=== PATIENT | female | born 1990 | race Caucasian/White ===

== ENCOUNTER 2024-11-28 21:33 | Emergency (ER) | payer OTHER, SELFPAY ==
[2024-11-28 21:41] VITALS: BP 128/76
--- NOTE | 2024-11-28 21:45 | ED.GENMED ---
History of Present Illness
General
Chief Complaint: Vaginal Bleeding
Time Seen by Provider: 11/28/24 21:45
History of Present Illness
History of Present Illness:
TIME OF INITIAL ENCOUNTER: 9:50 PM
HPI: Patient presents due to concerns of ongoing miscarriage now with significant cramping. FDLMP about 5 to 6 weeks ago. She had a positive test about 2 weeks ago. She called to make a appointment with [facility] a few days ago
and then started bleeding. She is certain that she is miscarrying. She was very concerned because she had clots that started today they were rather significant.
EXAM:
GENERAL: Well appearing in no distress
HEENT: Moist oral mucosa
ABDOMEN: Soft with no peritoneal signs, no tenderness
: With GEORGIE Jaeger in the room, bimanual exam shows small amount of blood
NEUROLOGIC: Excellent strength all extremities, no coordination deficits
PSYCHIATRIC: Appropriate mental status, normal insight and judgement
EXTREMITIES: Nontender, no edema, moves all extremities equally
SKIN: No rash, no lesions
NUMBER AND COMPLEXITY OF PROBLEMS ADDRESSED AT THE ENCOUNTER
� Chronic conditions affecting care: Has had 3 C-sections in the past
� Acute Exacerbation and/or Progression of Chronic Illness: This is an acute problem
� Differential Diagnosis includes: Incomplete miscarriage, complete miscarriage, ectopic , early live IUP
AMOUNT AND/OR COMPLEXITY OF DATA TO BE REVIEWED AND ANALYZED
� I performed an independent evaluation of and my interpretation is:
EKG:
CT:
X-rays:
Laboratory Studies: Prior records show blood type is A positive, hemoglobin 12.4, quant is 12.6
Other: Ultrasound shows no IUP
� Review of other/old records: I reviewed records, the patient had in 2022
� Clinical information was obtained by an independent historian: None needed
� Prescriptions/Medications Considered but not given:
� Further testing considered but not performed:
RISK OF COMPLICATIONS AND/OR MORBIDITY OR MORTALITY OF PATIENT MANAGEMENT
� Social determinants of health affecting care: Lives at home
� Discussion with other providers: I notified Dr. Scherer of patient's presentation and workup.
� Escalation of care including admission/observation vs risk of discharge considered: Although patient feels a little bit dizzy, she declines IV fluids. Will check ultrasound and labs. She is A positive based on prior studies.
ANY OTHER UPDATES:
11:45 PM: The patient is well-appearing on reassessment. Overall her symptoms have been improving. Suspect resolving miscarriage.
Past History
Past History
ED Past Medical History: None
ED Past Surgical History: None
Social History
Tobacco: Smoker
Alcohol: None
Drug: None
Personal: Single
Phy Exam
Physical Exam
Physical Exam:
See HPI
Course
Orders/Labs/Results
Orders:
Orders
11/28/24 21:55
US 1st Trimester Urgent
Comment:
Reason For Exam: preg vb, FDLMP 5+ wks ago
11/28/24 22:11
Beta HCG Quantitative Urgent
Is this a screen?: No
Complete Blood Count/With Diff Urgent
Abnormal Lab Results
11/28/24
22:11
RBC 3.99 L 10^6/uL
(4.20-5.40)
Hct 35.1 L %
(37.0-47.0)
MCH 31.1 H pg
(27.0-31.0)
RDW 11.3 L %
(11.5-14.5)
Absolute Neuts (auto) 6.9 H 10^3/uL
(1.4-6.5)
11/28/24 22:11
Vital Signs
Initial and Last Documented VS:
Initial Vital Signs
Temp Pulse Resp BP Pulse Ox
36.8 C 78 16 128/76 98
11/28/24 21:41 11/28/24 21:41 11/28/24 21:41 11/28/24 21:41 11/28/24 21:41
Last Documented Vital Signs
Temp Pulse Resp BP Pulse Ox
36.8 C 75 20 104/60 99
11/28/24 21:58 11/28/24 23:13 11/28/24 21:58 11/28/24 23:06 11/28/24 23:08
*Critical Care Note
Total Time (30-74mins, 75-104mins- exclusive of procedures): Not Applicable
ED Attending Note
-
Portions of this chart may have been created with voice recognition software.� Occasional wrong word or��sound alike� substitutions may have occurred due to the inherent limitations of voice recognition software.
Discharge Plan
Departure
Patient Disposition: Home (Routine Discharge)
Date of Disposition: 11/28/24
Time of Disposition: 23:45
Patient with high blood pressure during this ER visit?: Yes
Discharge Problem:
Complete miscarriage
Instructions: Miscarriage (DC), BLOOD PRESSURE
Prescriptions:
No Action
vit-iron fum-folic ac [ Tablet] 28 mg iron- 800 mcg Tablet
1 tab PO DAILY
acetaminophen 325 mg Tablet
650 mg PO Q4HPRN PRN (Reason: mild pain) Qty: 0 0RF
ibuprofen 600 mg Tablet
600 mg PO Q6HPRN PRN (Reason: cramps) Qty: 0 0RF
Referrals:
Dee Dee Morelos MD [Family Provider] -
Activity Restrictions/Additional Instructions:
Old records reviewed show that your blood type is a positive. Your hCG quantitative level is only 12.7 (very low). Your ultrasound does not show any signs of a inside of your uterus. Follow-up with [facility]. I did notify
Niesha owens.
Interventions
Interventions:
*Risk Screen - Suicide Last Done: 11/28/24 22:00
*General Assessment Last Done: 11/28/24 22:00
*Neglect/Abuse Screening Last Done: 11/28/24 22:00
*ED- Fall Risk Assessment Last Done: 11/28/24 22:00
*ED COVID-19 Vaccine History Last Done: 11/28/24 22:00
*Nursing Disposition Last Done: 11/28/24 23:55
ED-Female Genitourinary Assessment Last Done: 11/28/24 22:02
Discharge Date and Time
Discharge Date/Time: 11/28/24 23:59
Print Language: CAMBODIAN
[2024-11-28 21:58] VITALS: BP 121/72
[2024-11-28 22:01] VITALS: BMI 28.5
[2024-11-28 22:16] LABS: % Basophils 0.3 % (0-2); % Eosinophils 1.1 % (0-6); % Immature Granulocytes 0.3 % (0-0.5); % Lymphocytes 24.4 % (20.5-51.1); % Monocytes 5.8 % (1.7-9.3); % Neutrophils 68.1 % (42.2-75.2); Absolute Eosinophils 0.1 10^3/uL (0-0.7); Absolute Lymphocytes 2.5 10^3/uL (1.2-3.4); Absolute Monocytes 0.6 10^3/uL (0.1-0.6); Absolute Neutrophils 6.9 10^3/uL (1.4-6.5); Hematocrit 35.1 % (37.0-47.0); Hemoglobin 12.4 g/dL (12.0-16.0); Mean Corp Hgb Conc. 35.3 g/dL (33.0-37.0); Mean Corpuscular Hgb 31.1 pg (27.0-31.0); Mean Platelet Volume 9.4 fL (7.4-10.4); Nucleated Red Blood Cells % 0 %; Platelet Count 264 10^3/uL (130-400); Red Blood Cell Count 3.99 10^6/uL (4.20-5.40); Red Cell Dist. Width 11.3 % (11.5-14.5); White Blood Cell Count 10.2 10^3/uL (4.8-10.8)
[2024-11-28 22:50] LABS: Beta HCG Quantitative 12.65 mIU/ml
[2024-11-28 23:06] VITALS: BP 104/60
== END 2024-11-28 23:59 | disposition home or self-care (01) ==
LOC: EMR 21:33
PROVIDERS: EMERGENCY PHYSICIAN Emergency Medicine; FAMILY PHYSICIAN Student in an Organized Health Care Education/Training Program
DX: O03.9 Complete or unspecified spontaneous abortion without complication (principal); F17.200 Nicotine dependence, unspecified, uncomplicated
CPT/HCPCS: 99284; 76801; 84702; 85025

== ENCOUNTER → 2025-04-23 11:10 | Outpatient (REF) | payer OTHER, SELFPAY | LOC: PNTC 11:10 | PROVIDERS: ATTENDING PHYSICIAN Obstetrics & Gynecology | DX: Z36.0 Encounter for antenatal screening for chromosomal anomalies (principal); Z36.82 Encounter for antenatal screening for nuchal translucency | CPT/HCPCS: 76801; 76813 ==

== ENCOUNTER → 2025-06-18 16:19 | Outpatient (REF) | payer OTHER, SELFPAY | LOC: PNTC 16:19 | PROVIDERS: ATTENDING PHYSICIAN Obstetrics & Gynecology; PRIMARYCARE PHYSICIAN Student in an Organized Health Care Education/Training Program | DX: Z34.92 Encounter for supervision of normal pregnancy, unspecified, second trimester (principal); Z36.3 Encounter for antenatal screening for malformations; Z36.86 Encounter for antenatal screening for cervical length | CPT/HCPCS: 76805; 76817 ==